=== PATIENT | female | born 1975 | race African-American/Black ===

== ENCOUNTER 2020-04-23 08:13 | Day surgery (SDC) | payer OTHER ==
[2020-04-16 15:58] VITALS: BMI 28.1
[2020-04-23] MEDS ORDERED: BUPIVACAINE HCL/PF 0.25% (2.5MG/ML) 10 ML VIAL ONE (10:25)
[2020-04-23] MEDS ORDERED: MIDAZOLAM HCL 2 MG/2 ML SINGLE DOSE VIAL ONE (11:44)
[2020-04-23] MEDS ORDERED: ePHEDrine SULFATE 50 MG/1 ML AMPULE ONE (12:02)
[2020-04-23] MEDS ORDERED: KETOROLAC TROMETHAMINE 30 MG/1 ML VIAL ONE (12:02)
[2020-04-23] MEDS ORDERED: DEXAMETHASONE SOD PHOSPHATE 4 MG/1 ML VIAL ONE (12:02)
[2020-04-23] MEDS ORDERED: ONDANSETRON 4 MG/2 ML VIAL ONE ×2 (12:02→14:17)
[2020-04-23] MEDS ORDERED: ceFAZolin SODIUM 1 GM VIAL ONE (12:03)
[2020-04-23] MEDS ORDERED: TRANEXAMIC ACID 1000 MG/10 ML VIAL ONE (12:54)
[2020-04-23] MEDS ORDERED: ONDANSETRON 4 MG/2 ML VIAL IVPUSH PRN (13:40)
[2020-04-23] MEDS ORDERED: ACETAMINOPHEN 325 MG TABLET (FP) PO PRN (13:40)
[2020-04-23] MEDS ORDERED: oxyCODONE HCL 5 MG TABLET PO PRN ×2 (13:40)
[2020-04-23] MEDS ORDERED: LACTATED RINGERS SOLUTION 1,000 ML IV SCH (13:45)
[2020-04-23] MEDS ORDERED: oxyCODONE HCL 5 MG TABLET ONE (15:09)
[2020-04-23 16:33] VITALS: BP 121/68; PULSE 72; TEMP 98
== END 2020-04-23 16:00 | disposition home or self-care (01) ==
LOC: FASU 08:13
PROVIDERS: ATTEND Orthopaedic Surgery Orthopaedic Surgery of the Spine
PROC: 0J8M0ZZ Division of Left Upper Leg Subcutaneous Tissue and Fascia, Open Approach (ICD-10-PCS; principal; 2020-04-23 12:38)
DX: M76.32 Iliotibial band syndrome, left leg (principal)
CPT/HCPCS: 88304-TC; 94760